=== PATIENT | male | born 2000 | race Caucasian/White ===

== ENCOUNTER 2019-08-03 16:48 | Emergency (ER) | payer BC, SELFPAY ==
[2019-08-03 16:49] VITALS: BP 146/91; PULSE 82; RESP 18; TEMP 36.7; O2SAT 100; BMI 34.4
--- NOTE | 2019-08-03 17:19 | HMH.EDGENADL ---
ED Disposition Clinical Impression: Gastroenteritis Disposition: Home, Self-Care Condition on Discharge: Good Instructions: Rotavirus Prescriptions: Ondansetron [Zofran 4mg ODT] 4 mg PO TID PRN 4 Days #15 tab.rapdis PRN Reason: Nausea Transmission Status: Pending to [facility] - Critical Care Critical Care Time: No Attestation: On , the high probability of a clinically significant, sudden or life threatening deterioration of the following system(s) required my full and direct attention, intervention and personal management. The time I documented below is in addition to time spent performing reported procedures but includes the following listed in this critical care notation. Medical Decision Making - Medical Records Medical records reviewed: Yes: I reviewed the patient's medical records. - Tim Inquiry Pt receiving controlled substance: No Vital Signs: 08/03/19 16:49 Temperature 98.0 F Temperature Source Oral Pulse Rate [Radial] 82 Respiratory Rate 18 Blood Pressure [Right Arm] 146/91 H Blood Pressure Mean [Right Arm] 109 Blood Pressure Source [Right Arm] Automatic Cuff Blood Pressure Position [Right Arm] Sitting 02 Sat by Pulse Oximetry 100 Oxygen Delivery Method Room Air - Lab Data Lab results reviewed: Yes: I reviewed the patient's lab results. Orders (Tests/Meds): ED MEDICATIONS Generic Name Dose Route Start Last Admin Trade Name Freq PRN Reason Stop Dose Admin Sodium Chloride 1,000 mls @ 999 mls/hr 08/03/19 17:15 08/03/19 17:18 Sod Chlor 0.9% 1000ml Bag IV 08/03/19 18:15 999 mls/hr .Q1H1M ALEX Administration Discontinued Medications Generic Name Dose Route Start Last Admin Trade Name Freq PRN Reason Stop Dose Admin Belladonna Alkaloids 60 ml 08/03/19 17:09 08/03/19 17:18 Gi Cocktail 60ml Udc PO 08/03/19 17:10 60 ml ONCE ONE Administration Ondansetron HCl 4 mg 08/03/19 17:09 08/03/19 17:18 Zofran 4mg/2ml Vial IV 08/03/19 17:10 4 mg ONCE ONE Administration ORDERS Category Date Time Status Complete Blood Count Auto Diff Stat Lab 08/03/19 17:09 Ordered Comprehensive Metabolic Panel Stat Lab 08/03/19 17:09 Ordered General Adult HPI - General Chief complaint: Abdominal Pain Stated complaint: Vomiting,Abd Pain Time Seen by Provider: 08/03/19 16:48 Mode of Arrival: Ambulatory Source of Information: Patient Limitations: No Limitations Description of Symptoms (Recalled from ER Triage Doc. by RN): complaint of epigastic pain and vomiting that started last night. - History of Present Illness HPI narrative: 19-year-old male comes in complaining about some epigastric pain describes it as a burning sensation that started last night and he also is complaining about nausea and vomiting the nausea and vomiting started today he has had 3 episodes of emesis. Patient denies any recent fever shakes or chills patient also denies any radiation of the pain. Patient denies any cough or shortness of breath patient also denies any arthralgias myalgias or joint pains. Patient also denies any general malaise sore throat or headache. - Related Data Previous Rx's Medication Instructions Recorded Ondansetron [Zofran 4mg ODT] 4 mg PO TID PRN 4 Days #15 08/03/19 tab.rapdis Allergies Allergy/AdvReac Type Severity Reaction Status Date / Time No Known Allergies Allergy Verified 08/03/19 17:08 [facility] History - Hepatitis A Screen Drug use history?: No High risk sexual behaviors?: No History of sexually transmitted infection?: No Currently employed?: No Childcare worker?: No Do you have indoor plumbing?: Yes Do you have electricity?: Yes Attestation statement:: This patient has been screened for Hepatitis A risk factors. I have reviewed the patient's past medical history: Yes - Social History Educational Level: Completed High School Alcohol Intake: never Occupational Status: employed ROS Obtained: Yes Al
[2019-08-03 17:28] LABS: Basophils # 0.1 K/mm3 (0-0.2); Basophils % 1.7 % (0.1-2.0); Eosinophils # 0.2 K/mm3 (0.0-0.4); Eosinophils % 3.4 % (0.1-12.0); Hematocrit 44.3 % (42.0-52.0); Hemoglobin 15.6 g/dL (14.1-18.0); Lymphocytes # 1.1 K/mm3 (0.7-4.5); Lymphocytes % 18.2 % (10-50); Mean Corpuscular HGB Conc 35.1 g/dL (31.8-35.4); Mean Corpuscular Hemoglobin 32.6 pg (27.0-31.2); Mean Corpuscular Volume 92.6 fl (80-94); Mean Platelet Volume 8.5 fl (7.4-10.4); Monocytes # 0.4 K/mm3 (0.1-1.0); Monocytes % 6.1 % (1.7-9.3); Neutrophils # 4.4 K/mm3 (1.8-7.8); Neutrophils % 70.6 % (37.0-80.0); Platelet Count 209 K/mm3 (142-424); Red Blood Count 4.79 M/mm3 (4.60-6.20); Red Cell Distribution Width 12.8 % (11.5-17.5); White Blood Count 6.2 K/mm3 (4.5-13.0)
[2019-08-03 17:36] LABS: Alanine Aminotransferase 23 U/L (12-78); Albumin Level 5.4 g/dl (3.5-5.0); Albumin/Globulin Ratio 1.7 (1.1-1.8); Alkaline Phosphatase 73 U/L (38-126); Anion Gap 13.2 mEq/L (5-15); Aspartate Amino Transferase 30 U/L (17-59); Blood Urea Nitrogen 17 mg/dl (9-20); Calcium 9.7 mg/dl (8.4-10.2); Carbon Dioxide 29 mmol/L (22.0-30.0); Chloride 103 mmol/L (98-107); Creatinine Clearance Estimated 151 mL/min (50-200); Estimated Glomerular Filt Rate 85 ml/min (>60); GFR (African American) 103 ML/MIN (>60); Globulin 3.1 g/dL (1.3-3.2); Glucose 100 mg/dl (74-100); Potassium 4.2 mmoL/L (3.5-5.1); Sodium 141 mmol/L (136-145); Total Protein,Serum 8.5 g/dl (6.3-8.2)
[2019-08-03 18:10] VITALS: BP 146/91; PULSE 82; RESP 18; TEMP 36.7; O2SAT 100
== END 2019-08-03 18:11 | disposition home or self-care (01) ==
LOC: ER 17:50
PROVIDERS: Emergency Provider Family Medicine
DX: K52.9 Noninfective gastroenteritis and colitis, unspecified (principal)
CPT/HCPCS: 80053; 85025; 96365; 96375; 99282; J2405

== ENCOUNTER 2021-03-05 12:13 | Emergency (ER) | payer BC, SELFPAY ==
[2021-03-05 14:09] VITALS: BP 0/0; PULSE 0; RESP 0; TEMP -17.7; TEMP 0
== END 2021-03-05 14:10 | disposition left against medical advice (07) ==
PROVIDERS: Emergency Provider Nurse Practitioner
DX: Z53.21 Procedure and treatment not carried out due to patient leaving prior to being seen by health care provider (principal)

== ENCOUNTER 2021-03-18 08:27 | Emergency (ER) | payer SELFPAY ==
[2021-03-18 08:28] VITALS: BP 169/82; PULSE 81; RESP 16; TEMP 36.9; O2SAT 98; BMI 33.4
--- NOTE | 2021-03-18 08:39 | CT_ITS ---
FINAL REPORT CLINICAL HISTORY: low back pain..no trauma FINDINGS: Axial imaging of the lumbar spine was obtained without contrast. Sagittal and coronal reformatted images were also obtained and reviewed.This study was performed with techniques to keep radiation doses as low as reasonably achievable (ALARA). Individualized dose reduction techniques using automated exposure control or adjustment of mA and/or kV according to the patient''s size were employed. There is no fracture. The vertebral alignment is normal. The disc spaces are preserved. There is no evidence of significant central canal stenosis. L1-2: No evidence of significant central canal stenosis or neuroforaminal narrowing. L2-3: No evidence of significant central canal stenosis or neuroforaminal narrowing. L3-4: No evidence of significant central canal stenosis or neuroforaminal narrowing. L4-5: No evidence of significant central canal stenosis or neuroforaminal narrowing. L5-S1: Partial lumbarization is seen of S1. There is central and right paracentral disc protrusion which mildly indents the thecal sac. IMPRESSION: Partial lumbarization of S1. Central and right paracentral disc protrusions at L5-S1 with mild indentation of the thecal sac. No acute bony abnormality. Reviewed, Interpreted and Dictated by Surya King III, MD Transcribed by Darya Miranda Authenticated by Surya King III, MD on 03/18/2021 09:42:[address] [facility]
--- NOTE | 2021-03-18 08:44 | HMH.EDBACK ---
ED Disposition Clinical Impression: Lumbar herniated disc Disposition: Home, Self-Care Condition on Discharge: Good Instructions: DI for Herniated Disc Prescriptions: Ibuprofen [Ibuprofen 800mg Tablet] 800 mg PO TIDP PRN #20 tab PRN Reason: Moderate Pain [facility] methylPREDNISolone [Medrol 4mg tab] 4 mg PO DIRECTED #21 tab Transmission Status: Pending to [facility] methocarbamoL [Methocarbamol 500mg Tablet] 1,000 mg PO TID 10 Days #60 tab Transmission Status: Pending to [facility] Referrals: Charlotte Jefferson APRN [Primary Care Provider] - Elijah Campos [Referring] - - Critical Care Critical Care Time: No Attestation: On 03/18/21, the high probability of a clinically significant, sudden or life threatening deterioration of the following system(s) required my full and direct attention, intervention and personal management. The time I documented below is in addition to time spent performing reported procedures but includes the following listed in this critical care notation. Medical Decision Making - Medical Records Medical records reviewed: Yes: I reviewed the patient's medical records. - Tim Inquiry Pt receiving controlled substance: No Vital Signs: 03/18/21 08:28 Temperature 98.5 F Temperature Source Oral Pulse Rate [Radial] 81 Respiratory Rate 16 Blood Pressure [Right Arm] 169/82 H Blood Pressure Mean [Right Arm] 111 Blood Pressure Position [Right Arm] Sitting 02 Sat by Pulse Oximetry 98 Oxygen Delivery Method Room Air Orders (Tests/Meds): ED MEDICATIONS Generic Name Dose Route Start Last Admin Trade Name Freq PRN Reason Stop Dose Admin Hydrocodone Bitart/Acetaminophen 2 tab 03/18/21 09:45 Hydrocodone/Apap 5/325 Mg Tablet PO 03/18/21 09:46 ONCE ONE Discontinued Medications Generic Name Dose Route Start Last Admin Trade Name Freq PRN Reason Stop Dose Admin Ketorolac Tromethamine 30 mg 03/18/21 08:39 03/18/21 08:44 Ketorolac 30mg/Ml Vial IM 03/18/21 08:40 30 mg ONCE ONE Administration Methocarbamol 1,000 mg 03/18/21 08:39 03/18/21 08:44 Methocarbamol 500mg Tablet PO 03/18/21 08:40 1,000 mg ONCE STA Administration - CT Data CT Scan: L-Spine Time Received: 09:[address] Reviewed: Yes: I have reviewed the patient's CT results, I have viewed the radiologist's interpretation Findings Narrative: IMPRESSION: Partial lumbarization of S1. Central and right paracentral disc protrusions at L5-S1 with mild indentation of the thecal sac. No acute bony abnormality. - Reevaluation(s) Time: 09:46 Reevaluation #1: On reevaluation, the patient is feeling better. CT findings are concerning for herniated lumbar disc. Repeat examination does not show any neuro deficit, no saddle anesthesia. Patient follow-up with PCP in 48 hours. Given strict return precautions. Verbalized understanding. Medical Decision Narrative: 20-year-old male presenting with some lower back pain. I do believe the patient's symptoms are consistent with a strain and spasm. He has no midline tenderness or findings concerning for spinal compression. Work-up initiated. Back Pain HPI - General Chief Complaint: Back Pain/Injury Stated Complaint: back pain Time Seen by Provider: 03/18/21 08:30 Mode of Arrival: Ambulatory Limitations: No Limitations Description of Symptoms (Recalled from ER Triage Doc. by RN): TO ED PER PVT CAR WITH C/O SHARP LOWER MID BACK PAIN X 2 WEEKS. PT STATES PAIN WORSE WITH MOVEMENT. PT DENIES ANY RADIATION OF PAIN. DENIES ANY NAUSEA, VOMITING. PT STATES HE HAS NOT USED ANY OTC MEDS FOR PAIN - History of Present Illness HPI Narrative: Is a 20-year-old male presented to the emergency department with some lower back pain. Patient has had the symptoms for the last 10 days or so. Patient states that he did have a twisting injury at that time, however no direct contact. The
[2021-03-18 09:55] VITALS: BP 130/87; PULSE 79; RESP 16; TEMP 36.8; O2SAT 100
[2021-03-18 09:59] VITALS: BP 134/72; PULSE 80; RESP 16; TEMP 36.9; O2SAT 99
== END 2021-03-18 09:58 | disposition home or self-care (01) ==
PROVIDERS: Emergency Provider Emergency Medicine; PCP Nurse Practitioner
DX: M51.26 Other intervertebral disc displacement, lumbar region (principal)
CPT/HCPCS: 72131; 96372; 96374; 99282

== ENCOUNTER → 2021-03-27 12:51 | Outpatient (CLI) | payer SELFPAY ==
--- NOTE | 2021-03-27 12:54 | MR_ITS ---
FINAL REPORT CLINICAL HISTORY: LOW BACK PAIN, bilateral leg weakness. symptoms 2-3 weeks 20ml prohance lot:[id number] exp:jun 2023 FINDINGS: Multiplanar MR imaging of the lumbar spine was performed without and with contrast. On the sagittal T2-weighted images, disc degeneration is seen at L2-L3. The vertebral alignment is normal. There is no evidence of fracture. The conus has an unremarkable appearance. L1-2: No significant canal stenosis or neuroforaminal narrowing is seen. L2-3: An annular bulge is present. No significant canal stenosis or neuroforaminal narrowing is seen. L3-4: No significant canal stenosis or neuroforaminal narrowing is seen. L4-5: No significant canal stenosis or neuroforaminal narrowing is seen. L5-S1: Small central disc protrusion is present. There is partial lumbarization of S1. No significant canal stenosis or neuroforaminal narrowing is seen. No abnormal contrast enhancement is identified. IMPRESSION: Small central disc protrusion at L5-S1 without significant central canal stenosis. Reviewed, Interpreted and Dictated by Surya King III, MD Transcribed by Rashawn Davila Authenticated by Surya King III, MD on 03/27/2021 03:11:11 PM [facility]
== END ==
PROVIDERS: PCP Nurse Practitioner; Visit Provider Nurse Practitioner
DX: M54.50 Low back pain, unspecified (principal)
CPT/HCPCS: 72158; 76376; A9576

== ENCOUNTER 2021-10-25 14:50 | Emergency (ER) | payer OTHER, SELFPAY ==
[2021-10-25 15:00] VITALS: BP 134/84; PULSE 106; RESP 18; TEMP 36.9; O2SAT 99; BMI 30.5
--- NOTE | 2021-10-25 15:12 | HMH.EDUTC ---
[facility] [place] Disposition Clinical Impression: Otitis media Qualifiers: Otitis media type: suppurative Chronicity: acute Laterality: right Recurrence: non-recurrent Spontaneous tympanic membrane rupture: without spontaneous rupture Qualified Code(s): H66.001 - Acute suppurative otitis media without spontaneous rupture of ear drum, right ear Disposition: Home, Self-Care Condition on Discharge: Good Instructions: Middle Ear Infection Additional Instructions: Start antibiotic as soon as possible and be sure to take as ordered for full length of time even though he should start feeling better in 24-48 hours. Tylenol or Motrin as needed for pain or fever Encourage fluids, water, Gatorade, Powerade, Pedialyte if /toddler/child Warm compresses often helps when placed over ear Return immediately for new or worsening symptoms no noticeable improvement in 48-72 hours and in 10-14 days to ensure the ears are return to baseline. Follow-up with primary care Prescriptions: Amoxicillin [Amoxicillin 500mg Tab] 500 mg PO BID 10 Days #20 tab Prescription Printed Referrals: Provider,Referral, [Primary Care Provider] - Time of Disposition: 15:15 Medical Decision Making - Tim Inquiry Pt receiving controlled substance: No [facility] [place] HPI - General Chief complaint: Urgent Treatment Center Stated complaint: RT ear pain, neck pain Time Seen by Provider: 10/25/21 15:13 Mode of Arrival: Ambulatory Source of Information: Patient Limitations: No Limitations - History of Present Illness Provider Complaint: 21 yr old male presents for rt ear pain and neck pain for 2 days - Related Data Previous Rx's Medication Instructions Recorded Ibuprofen [Ibuprofen 800mg 800 mg PO TIDP PRN #20 tab 03/18/21 Tablet] methocarbamoL [Methocarbamol 500mg 1,000 mg PO TID 10 Days #60 tab 03/18/21 Tablet] methylPREDNISolone [Medrol 4mg 4 mg PO DIRECTED #21 tab 03/18/21 tab] Amoxicillin [Amoxicillin 500mg Tab] 500 mg PO BID 10 Days #20 tab 10/25/21 Allergies Allergy/AdvReac Type Severity Reaction Status Date / Time No Known Allergies Allergy Verified 08/03/19 17:08 [facility] History - Hepatitis A Screen Attestation statement:: This patient has been screened for Hepatitis A risk factors. I have reviewed the patient's past medical history: Yes - Social History Alcohol Intake: never Occupational Status: employed ROS Obtained: Yes Systems reviewed as appropriate & no additional complaints - Constitutional Constitutional: Reports system reviewed and no additional complaints, except as docu, Denies daytime sleepiness - Eyes Eyes: Reports system reviewed and no additional complaints, except as docu, Denies dry eyes - ENT Ears, Nose, Mouth, and Throat: Reports system reviewed and no additional complaints, except as docu, Reports otalgia, Reports neck pain - Cardiovascular Cardiovascular: Reports system reviewed and no additional complaints, except as docu, Denies chest pain - Respiratory Respiratory: Reports system reviewed and no additional complaints, except as docu, Denies cough - Gastrointestinal Gastrointestingal: Reports: system reviewed and no additional complaints, except as docu. Denies: abdominal pain - Musculoskeletal Musculoskeletal: Reports system reviewed and no additional complaints, except as docu, Denies joint pain - Integumentary/Breasts Skin/Breast: Reports system reviewed and no additional complaints, except as docu, Denies rash - Neurologic Neurologic: Reports system reviewed and no additional complaints, except as docu, Denies dizziness - Endocrine Endocrine: Reports system reviewed and no additional complaints, except as docu, Denies fatigue - Hematologic/Lymphatic Henatologic/Lymphatic: Reports system reviewed and no additional complaints, except as docu, Denies easy bruising - Allergic/Immunologic Allergic/Immunologic: Reports system reviewed and no additional complaints, except as docu,
[2021-10-25 15:17] VITALS: BP 134/84; PULSE 106; RESP 18; TEMP 36.9; O2SAT 99
== END 2021-10-25 15:20 | disposition home or self-care (01) ==
PROVIDERS: Emergency Provider Nurse Practitioner Family
DX: H66.001 Acute suppurative otitis media without spontaneous rupture of ear drum, right ear (principal)
CPT/HCPCS: 99212; G0463

== ENCOUNTER 2021-11-09 15:31 | Emergency (ER) | payer OTHER, SELFPAY ==
[2021-11-09 15:33] VITALS: BP 126/84; PULSE 104; RESP 18; TEMP 36.9; O2SAT 98; BMI 34.4
[2021-11-09 16:30] VITALS: BP 121/81; PULSE 103; RESP 18; O2SAT 98
--- NOTE | 2021-11-09 16:34 | PC.NURSE ---
PT ASSISTED TO BR
--- NOTE | 2021-11-09 16:39 | PC.NURSE ---
Animal bite form faxed to health dept at this time.
--- NOTE | 2021-11-09 16:57 | PC.NURSE ---
ED MD AT BEDSIDE FOR EVALUATION
--- NOTE | 2021-11-09 17:02 | XR_ITS ---
PROCEDURE INFORMATION: Exam: XR Right Tibia and Fibula Exam date and time: 11/09/2021 5:05 PM Age: 21 years old Clinical indication: Injury or trauma; Other: Dog bite; Bleeding/hemorrhage; Lower leg; Right; Additional info: Dog bite to right low leg TECHNIQUE: Imaging protocol: Radiologic exam of the Right tibia and fibula. Views: 2 views. COMPARISON: No relevant prior studies available. FINDINGS: Bones/joints: No fracture or radiopaque foreign body. Soft tissues: Soft tissue injury apparently medially level of midportion of the lower leg. IMPRESSION: No fracture or radiopaque foreign body.
--- NOTE | 2021-11-09 17:14 | PC.NURSE ---
PT TO XR
--- NOTE | 2021-11-09 17:21 | PC.NURSE ---
PT RETURNED FROM XR
--- NOTE | 2021-11-09 17:22 | HMH.EDGENADL ---
Discharge Plan Disposition Patient Disposition: Home, Self-Care Condition: Good Prescriptions Prescriptions: New amoxicillin-pot clavulanate [Augmentin] 500-125 mg tablet 1 tab PO Q8H Qty: 30 0RF No Action ibuprofen 800 MG tablet 800 mg PO TIDP PRN (Reason: Moderate Pain) Qty: 20 0RF methylprednisolone 4 MG tablet 4 mg PO DIRECTED Qty: 21 0RF Rx Instructions: Take as directed on package instructions methocarbamol 500 MG tablet 1,000 mg PO TID 10 Days Qty: 60 0RF amoxicillin 500 MG tablet 500 mg PO BID 10 Days Qty: 20 0RF Referrals Follow up/Referrals: Provider,Referral, [Primary Care Provider] - See instructions Activity Restrictions/Add. Instructions Additional Instructions/Restrictions: Take Augmentin as prescribed. Clean wounds daily with soap and water and reapply bandage. Follow-up with primary care provider in 3 to 4 days for wound check. Return to the emergency department if increasing pain, redness, swelling, pus drainage, red streaks, or fever. Clinical Impressions Clinical Impression: Dog bite Instructions Patient Instructions: Animal Bites Discharge ED Provider: Kevin Tesfaye General Adult HPI General Chief complaint: Animal Bite Stated complaint: [id number] dog bite R leg Time Seen by Provider: 11/09/21 16:53 Mode of Arrival: Ambulatory Source of Information: Patient Limitations: No Limitations Description of Symptoms (Recalled from ER Triage Doc. by RN): PT BIT BY DOG OF FAMILY MEMBER. PUNCTURE WOUNDS TO RIGHT LOWER EXTREMITY History of Present Illness HPI narrative: Patient bit on his right lower leg by Labrador retriever that is a family pet. The pet is believed to be up-to-date on immunizations. The patient has not had a tetanus immunization in 5 years. He has wounds on his anterior and posterior right lower leg and says when he tries to ambulate his muscles tighten up and it makes it difficult to walk. He does not know whether the dog bit him hard enough to injure bone but thinks maybe so. Related Data Previous Rx's Medication Instructions Recorded ibuprofen 800 mg tablet 800 mg PO TIDP PRN Moderate Pain 03/18/21 #20 tabs methocarbamol 500 mg tablet 1,000 mg PO TID 10 days #60 tabs 03/18/21 methylprednisolone 4 mg tablet 4 mg PO DIRECTED #21 tabs 03/18/21 amoxicillin 500 mg tablet 500 mg PO BID 10 days #20 tabs 10/25/21 amoxicillin 500 mg-potassium 1 tab PO Q8H #30 tabs 11/09/21 clavulanate 125 mg tablet (Augmentin) Allergies Allergy/AdvReac Type Severity Reaction Status Date / Time No Known Allergies Allergy Verified 08/03/19 17:08 [facility] Social History Smoking Status: Never smoker alcohol intake: never current occupational status: employed Travel in the last 8 weeks: None ROS Obtained: Yes Systems reviewed as appropriate & no additional complaints except as documented Constitutional Constitutional: Denies fever(s) and Denies weakness Musculoskeletal Musculoskeletal: Reports as per HPI and Denies numbness Neurologic Neurologic: Denies numbness and Denies weakness Physical Exam General General appearance: alert and in no apparent distress Respiratory Respiratory exam: Absent respiratory distress Cardiovascular Cardiovascular exam: Present regular rate Expanded Lower Extremity Exam Right: Comment: Puncture wound x1 present on anterior aspect of right lower leg distal one third. Lacerations of posterior lower leg x2 distal one third. Lacerations are 2.5 cm and 1.5 cm. distal neurovascular status is intact. Normal pedal pulses, cap refill, sensation, warmth, capillary refill, movement of toes and ankle. Neurological Exam Neurological exam: Present alert and oriented X3 Psychiatric Psychiatric exam: Present normal affect and normal mood Skin Skin exam: Present warm and dry Medical Decision Making Tim Inquiry Pt receiving controlled substance: No Vital Signs: 11/09
--- NOTE | 2021-11-09 17:29 | PC.NURSE ---
ED MD AT BEDSIDE TO NUMB WOUNDS FOR CLEANSING
[2021-11-09 18:05] VITALS: BP 125/76; PULSE 95; RESP 18; TEMP 36.8; O2SAT 99
--- NOTE | 2021-11-09 18:10 | PC.NURSE ---
Wheeled patient out to truck in wheelchair
== END 2021-11-09 18:05 | disposition home or self-care (01) ==
PROVIDERS: Emergency Provider Emergency Medicine
DX: S81.851A Open bite, right lower leg, initial encounter (principal); W54.0XXA Bitten by dog, initial encounter
CPT/HCPCS: 73590; 90471; 90715; 99283

== ENCOUNTER 2022-02-16 18:21 | Emergency (ER) | payer OTHER, SELFPAY ==
[2022-02-16 18:39] VITALS: BP 155/93; PULSE 117; RESP 18; TEMP 38; O2SAT 97; BMI 34.4
[2022-02-16 18:51] LABS: Coronavirus 19, PCR Not Detected (NotDetected); Influenza B, PCR Not Detected (NotDetected)
[2022-02-16 19:30] VITALS: BP 150/93; PULSE 110; O2SAT 95
[2022-02-16 20:00] VITALS: BP 142/91; PULSE 121; O2SAT 96
--- NOTE | 2022-02-16 20:01 | HMH.EDGENADL ---
Discharge Plan Disposition Patient Disposition: Home, Self-Care Condition: Good Prescriptions Prescriptions: New ondansetron [ondansetron] 4 mg tablet,disintegrating 4 mg PO TIDP PRN (Reason: Nausea) Qty: 10 0RF Referrals Follow up/Referrals: Charlotte Jefferson APRN [Primary Care Provider] - See instructions Clinical Impressions Clinical Impression: Influenza Instructions Patient Instructions: DI for Influenza -- Adult Discharge ED Provider: Carlo Vega General Adult HPI General Chief complaint: Upper Respiratory Infection Stated complaint: fever, cough, vomiting, diarrhea Time Seen by Provider: 02/16/22 18:45 Mode of Arrival: Ambulatory Source of Information: Patient Limitations: No Limitations Description of Symptoms (Recalled from ER Triage Doc. by RN): pt states he has had nausea, vomiting, and diarrhea for a few weeks, also reports fever, cough, congestion, and sinus pressure for 2 days, states he woke up this morning and R ear is muffled History of Present Illness HPI narrative: Patient is a 21-year-old male who presents with multiple complaints. He states that he feels like he has been sick for the last few weeks. He says that over that time he said nausea, vomiting, diarrhea as well as cough and congestion. He got better for a couple of days but then it got substantially worse again. He says that over the last 2 days has had worsening fever, cough congestion and sinus pressure. He says that he feels like his ears are clogged. He denies any chest pain. No pleuritic pain. No urinary symptoms. Continues to have some diarrhea and nausea. Related Data Previous Rx's Medication Instructions Recorded ondansetron 4 mg disintegrating 4 mg PO TIDP PRN Nausea #10 tabs 02/16/22 tablet Allergies Allergy/AdvReac Type Severity Reaction Status Date / Time No Known Allergies Allergy Verified 08/03/19 17:08 [facility] Disclaimer: The information contained in this section may have been updated after the patient was seen, as this information can be updated by other users. Social History Smoking Status: Never smoker alcohol intake: never current occupational status: employed Travel in the last 8 weeks: None ROS Obtained: Yes All systems reviewed & no additional complaints except as documented A 14 point review of system was obtained and otherwise negative except per HPI Physical Exam General General appearance: alert and in no apparent distress Head Head exam: atraumatic, normocephalic and normal inspection Eye Eye exam: Present normal appearance, PERRL and EOMI ENT ENT exam: Present normal exam, normal oropharynx, mucous membranes moist, TM's normal bilaterally and normal external ear exam Neck Neck exam: Present normal inspection, full ROM and trachea midline; Absent meningismus or lymphadenopathy Chest Chest inspection: Present normal inspection and symmetric chest wall rise; Absent tenderness Respiratory Respiratory exam: Present normal lung sounds bilaterally; Absent respiratory distress Cardiovascular Cardiovascular exam: Present regular rate and normal rhythm; Absent JVD Abdominal Exam Abdominal exam: Present soft and normal bowel sounds; Absent distention, tenderness or guarding Extremities Exam Extremities exam: Present normal inspection, full ROM and normal capillary refill; Absent calf tenderness Back Exam Back exam: Present normal inspection; Absent tenderness Neurological Exam Neurological exam: Present alert and oriented X3 Psychiatric Psychiatric exam: Present normal affect and normal mood Skin Skin exam: Present warm, dry, intact and normal color Lymphatic Lymphatic Findings: no adenopathy Medical Decision Making Medical Records Medical records reviewed: Yes I reviewed the patient's medical records. Tim Inquiry Pt receiving controlled substance: No Vital Signs: 02/16/22 18:39 Temperature 100.4 F H Temperature Source Oral Pulse Rate [Rig
[2022-02-16 20:09] LABS: Influenza A, PCR Detected (NotDetected)
[2022-02-16 20:30] VITALS: BP 145/93; PULSE 107; O2SAT 94
[2022-02-16 20:44] VITALS: BP 145/90; PULSE 85; RESP 18; TEMP 36.8; O2SAT 98
== END 2022-02-16 20:49 | disposition home or self-care (01) ==
PROVIDERS: Emergency Provider Student in an Organized Health Care Education/Training Program; PCP Nurse Practitioner
DX: J10.1 Influenza due to other identified influenza virus with other respiratory manifestations (principal)
CPT/HCPCS: 99283; C9803; U0003; U0005